=== PATIENT | male | born 1930 | race Caucasian/White ===

== ENCOUNTER 2017-06-04 21:32 | Emergency (ER) | payer MEDICARE, OTHER ==
[~2017-06-04 21:32] MED LIST: ALBU6.7H INH; AMOX875T2 PO; APIX2.5T PO; ATOR40TA16 PO; DILT240C; FURO1TAB60 PO; LEVO.075 PO; MECL-62 PO; OMEP40CA2 PO; TYLETAB34 PO
[2017-06-04 21:47] VITALS: BP 138/63; PULSE 87; RESP 18; TEMP 98; O2SAT 95
[2017-06-04] MEDS ORDERED: KETOROLAC TROMETHAMINE 60 MG/2 ML (IM) VIAL IM ONE (23:30)
[2017-06-04] MEDS ORDERED: SYMB160A INH (23:35)
[2017-06-04] MEDS ORDERED: CHOL1CAP8 PO (23:35)
[2017-06-04] MEDS ORDERED: SPIRCAP INH (23:35)
--- NOTE | 2017-06-04 23:35 | PD ---
HPI Chief Complaint: Pain: Acute or Chronic Time Seen by Provider: 23:18 Travel History International Travel<30 days: No Contact w/Intl Traveler<30days: No Traveled to known affect area: No History of Present Illness HPI 87yo M with PMH of spina bifida occult, afib on eliquis, hypothyroidism, sciatica presents to the ED with c/o right leg pain today. Said it is from right buttocks down his right leg up to around his knee area. Pt said he has been having intermittent leg pain that alternates between the left and right for 1 month. Denies any focal numbness, weakness, fever, trauma, fall, chest pain, sob, n/v, abdominal pain. Pt said he took acetaminophen with codeine at 8pm and it didnt help with the pain. Has some tingling in his feet. Pt has bilateral lower extremity swelling that is not new. Pt has a bike at home that he uses and thinks it made the pain worst today. PFSH Past Medical History Atrial Fibrillation: Yes Heart Rhythm Problems: Yes Cancer: Yes Cardiovascular Problems: Yes High Cholesterol: Yes COPD: Yes Diminished Hearing: No Gastrointestinal Disorders: No Genitourinary: Yes Hypertension: Yes Immune Disorder: No Implanted Vascular Access Dvce: Yes Musculoskeletal: Yes (SPINA BIFIDA) Neurologic: Yes Psychiatric: No Reproductive: No Respiratory: Yes Immunizations Current: Yes Myocardial Infarction: Yes Thyroid Disease: Yes ("problems") ?: Not Past Surgical History Genitourinary Surgery: Yes (TURP) Other Surgery: Yes (RIGHT TESTICLE) Social History Alcohol Use: No Tobacco Use: No (QUIT 2003) Substance Use: No Allergies-Medications (Allergen,Severity, Reaction): Coded Allergies: No Known Allergies (Verified Adverse Reaction, Unknown, 06/04/17) Reported Meds & Prescriptions Reported Meds & Active Scripts Active Omeprazole 40 Mg Cap 40 Mg PO DAILY Reported Symbicort Inh (Budesonide/Formoterol Fumarate) 160-4.5 Mcg/Act Aero 1 Puff INH Q12HR Vitamin D3 (Cholecalciferol) 400 Unit Cap 400 Units PO DAILY Spiriva Handihaler (Tiotropium Inh) 18 Mcg Cap 18 Mcg INH DAILY 1 capsule = 18 mcg Tylenol-Codeine #3 (Acetaminophen-Codeine) 300-30 mg Tab 1 Tab PO Q4H PRN Proventil Hfa 6.7 GM Inh (Albuterol Sulfate) 90 Mcg/Act Aer 1 Puff INH Q4H PRN Synthroid (Levothyroxine Sodium) 75 Mcg Tab 75 Mcg PO DAILY Lasix (Furosemide) 40 Mg Tab 40 Mg PO DAILY Diltiazem HCl ER (Diltiazem HCl Coated Beads) 240 Mg Cap Atorvastatin (Atorvastatin Calcium) 40 Mg Tab 40 Mg PO HS Eliquis (Apixaban) 2.5 Mg Tab 2.5 Mg PO BID Review of Systems Except as stated in HPI: all other systems reviewed are Neg Physical Exam Narrative GENERAL: 87yo M not in distress. SKIN: Focused skin assessment warm/dry. HEAD: Atraumatic. Normocephalic. EYES: Pupils equal and round. No scleral icterus. No injection or drainage. ENT: No nasal bleeding or discharge. Mucous membranes pink and moist. NECK: Trachea midline. No JVD. CARDIOVASCULAR: Regular rate and rhythm. No murmur appreciated. RESPIRATORY: No accessory muscle use. Clear to auscultation. Breath sounds equal bilaterally. GASTROINTESTINAL: Abdomen soft, non-tender, nondistended. No rebound tenderness or guarding. MUSCULOSKELETAL: RLE: No erythema or ttp right hip. Positive straight leg test. +Bilateral lower extremity edema. Sensation equal and intact bilateral lower extremities. Distal pulses intact. FROM in bilateral hips and knees. NEUROLOGICAL: Awake and alert. No obvious cranial nerve deficits. Motor grossly within normal limits. Normal speech. PSYCHIATRIC: Appropriate mood and affect; insight and judgment normal. Data Data Last Documented VS Vital Signs Date Time Temp Pulse Resp B/P (MAP) Pulse Ox O2 Delivery O2 Flow Rate FiO2 06/04/17 23:35 18 06/04/17 21:47 98.0 87 138/63 (88) 95 Orders Orders Ketorolac Inj (Toradol Inj) (06/04/17 23:30) Ed Discharge Order (06/05/17 01:11) [facility] Medical Decision Making Medical Screen Exam Complete: Yes Emergency Medical Condition: Yes Differential Diagnosis Sciatica vs. musculoskeletal pain Narrative Course 87yo M with right lower extremity pain that is from right gluteus kaylin down to right knee. Pt said he drove so will give him toradol. Pt reevaluated at bedside and said pain has resolved. Pt feels great and wants to go home. No trauma, no red flags. Neurologically intact. Return precautions given. Diagnosis Primary Impression: Sciatic leg pain Patient Instructions: General Instructions Departure Forms: Tests/Procedures Additional Instructions: Please follow up with your primary care physician in 2-3 days. Return to the ED if symptoms worsen. Med/Other Pt SpecificInfo: Prescription(s) given Scripts Acetaminophen (Tylenol) 325 Mg Tab 325 MG PO Q4H Y for PAIN SCALE 1 TO 4, #20 TAB 0 Refills Prov: Darlene Anaya DO 06/05/17 Disposition: 01 DISCHARGE HOME Condition: Stable Darlene Anaya DO Jun 04, 2017 23:35
[2017-06-05] MEDS ORDERED: TYLE325T PO (01:13)
[2017-06-05 02:00] VITALS: BP 136/68; PULSE 82; RESP 18; O2SAT 97
== END 2017-06-05 02:29 | disposition home or self-care (01) ==
LOC: PHED 21:32
DX: M54.31 Sciatica, right side (principal); I48.91 Unspecified atrial fibrillation; E78.00 Pure hypercholesterolemia, unspecified; J44.9 Chronic obstructive pulmonary disease, unspecified; I10 Essential (primary) hypertension; Q05.9 Spina bifida, unspecified; I25.2 Old myocardial infarction; E03.9 Hypothyroidism, unspecified; Z79.01 Long term (current) use of anticoagulants
CPT/HCPCS: 96372; 99283; J1885

== ENCOUNTER 2017-08-02 14:01 | Emergency (ER) | payer MEDICARE, OTHER ==
[~2017-08-02] VITALS: Ht 162.6 cm; Wt 75.0 kg
[~2017-08-02 14:01] MED LIST changes: -AMOX875T2 PO; +CHOL1CAP8 PO; -MECL-62 PO; +SPIRCAP INH; +SYMB160A INH; +TYLE325T PO
[2017-08-02 14:03] VITALS: BP 144/73; PULSE 102; RESP 18; TEMP 97.7; O2SAT 96
[2017-08-02] MEDS ORDERED: KETOROLAC TROMETHAMINE 60 MG/2 ML (IM) VIAL IM ONE (14:45)
--- NOTE | 2017-08-02 15:06 | PD ---
HPI Chief Complaint: Pain: Acute or Chronic Time Seen by Provider: 14:31 Travel History International Travel<30 days: No Contact w/Intl Traveler<30days: No Traveled to known affect area: No History of Present Illness HPI 87-year-old male here with pain in his right gluteal area radiating down the back of his right thigh since this morning. He reports he was doing exercises in his home on an exercise bike which caused pain. He has had similar pain in the past and was told it was sciatica. He is requesting a shot which she was given last time for this. He denies paresthesia or weakness of the extremities. He does report he has chronic numbness in both feet. This is unchanged from his norm. The pain in his back is constant, aching, radiating from the right buttocks to thigh. Aggravated by movement and slightly improved by rest. Symptom severity is moderate. He denies fever, chills, incontinence, saddle anesthesia, paresthesia or weakness of the extremities. PFSH Past Medical History Hx Anticoagulant Therapy: Yes (ELIQUIS) Atrial Fibrillation: Yes Heart Rhythm Problems: Yes Cancer: Yes Cardiovascular Problems: Yes High Cholesterol: Yes COPD: Yes Cerebrovascular Accident: Yes Diminished Hearing: No Gastrointestinal Disorders: No Genitourinary: Yes Hypertension: Yes Immune Disorder: No Implanted Vascular Access Dvce: Yes Musculoskeletal: Yes (SPINA BIFIDA) Neurologic: Yes Psychiatric: No Reproductive: No Respiratory: Yes Immunizations Current: Yes Myocardial Infarction: Yes Thyroid Disease: Yes ("problems") Past Surgical History Genitourinary Surgery: Yes (TURP) Other Surgery: Yes (RIGHT TESTICLE) Social History Alcohol Use: No Tobacco Use: No (QUIT 2003) Substance Use: No Allergies-Medications (Allergen,Severity, Reaction): Coded Allergies: No Known Allergies (Verified Adverse Reaction, Unknown, 08/02/17) Reported Meds & Prescriptions Reported Meds & Active Scripts Active Omeprazole 40 Mg Cap 40 Mg PO DAILY Reported Symbicort Inh (Budesonide/Formoterol Fumarate) 160-4.5 Mcg/Act Aero 1 Puff INH Q12HR Vitamin D3 (Cholecalciferol) 400 Unit Cap 400 Units PO DAILY Spiriva Handihaler (Tiotropium Inh) 18 Mcg Cap 18 Mcg INH DAILY 1 capsule = 18 mcg Tylenol-Codeine #3 (Acetaminophen-Codeine) 300-30 mg Tab 1 Tab PO Q4H PRN Synthroid (Levothyroxine Sodium) 75 Mcg Tab 75 Mcg PO DAILY Lasix (Furosemide) 40 Mg Tab 40 Mg PO DAILY Diltiazem HCl ER (Diltiazem HCl Coated Beads) 240 Mg Cap Atorvastatin (Atorvastatin Calcium) 40 Mg Tab 40 Mg PO HS Eliquis (Apixaban) 2.5 Mg Tab 2.5 Mg PO BID Review of Systems Except as stated in HPI: all other systems reviewed are Neg General / Constitutional: No: Fever Eyes: No: Visual changes HENT: No: Headaches Cardiovascular: No: Chest Pain or Discomfort Respiratory: No: Shortness of Breath Gastrointestinal: No: Abdominal Pain Genitourinary: No: Dysuria Physical Exam Narrative GENERAL: Alert and well-appearing 87-year-old male. No distress. Relating with a steady gait. SKIN: Warm and dry. HEAD: Atraumatic. Normocephalic. EYES: No injection or drainage. NECK: Supple CARDIOVASCULAR: Regular rate and rhythm. RESPIRATORY: No accessory muscle use. Clear to auscultation. Breath sounds equal bilaterally. GASTROINTESTINAL: Abdomen soft, non-tender, nondistended. Hepatic and splenic margins not palpable. MUSCULOSKELETAL: Extremities without clubbing, cyanosis. Mild nonpitting lower extremity edema which patient reports is chronic. Normal sensation. Palpable DP pulses. NEUROLOGICAL: Awake and alert. No obvious cranial nerve deficits. Motor grossly within normal limits. Five out of 5 muscle strength in the arms and legs. BACK: No midline spine tenderness. No CVA tenderness. +TTP right gluteus kaylin. PSYCHIATRIC: Appropriate mood and affect; insight and judgment normal. Data Data Last Documented VS Vital Signs Date Time Temp Pulse Resp B/P (MAP) Pulse Ox O2 Delivery O2 Flow Rate FiO2 08/02/17 14:03 97.7 102 18 144/73 (96) 96 Orders Orders Ketorolac Inj (Toradol Inj) (08/02/17 14:45) [facility] Medical Decision Making Medical Screen Exam Complete: Yes Emergency Medical Condition: Yes Differential Diagnosis Sciatica, DJD, lumbar strain, herniated disc Narrative Course 87-year-old male here with sciatica pain. He was given a shot of Toradol. Reports symptom improvement. He has a normal neurologic exam. Diagnosis Primary Impression: Sciatica Qualified Codes: M54.31 - Sciatica, right side Referrals: Primary Care Physician Additional Instructions: Tylenol as needed for pain Discontinue bike riding until sciatica is resolved Follow-up with your doctor Disposition: 01 DISCHARGE HOME Condition: Stable Dhara Marino Aug 02, 2017 15:06
== END 2017-08-02 15:33 | disposition home or self-care (01) ==
LOC: PHEFT 14:01
DX: M54.31 Sciatica, right side (principal); I10 Essential (primary) hypertension; I25.2 Old myocardial infarction; I48.91 Unspecified atrial fibrillation; E78.00 Pure hypercholesterolemia, unspecified; J44.9 Chronic obstructive pulmonary disease, unspecified; Z86.73 Personal history of transient ischemic attack (TIA), and cerebral infarction without residual deficits; Z79.01 Long term (current) use of anticoagulants; Z87.891 Personal history of nicotine dependence; Z79.899 Other long term (current) drug therapy
CPT/HCPCS: 96372; 99283; J1885